=== PATIENT | male | born 1970 | race Caucasian/White ===

== ENCOUNTER → 2021-06-12 | Outpatient (CLI) | payer OTHER ==
[~2021-06-12] VITALS: Ht 193 cm; Wt 120.2 kg
[~2021-06-12] MED LIST: OMEPRAZOLE40 MG PO
[2021-06-12 13:54] VITALS: BP 129/88
--- NOTE | 2021-06-12 14:19 | NUR ---
[facility] Assessment: 1. History of Osteoarthritis: LOW BACK History of Rheumatoid Arthritis: Not Applicable 2. Height: 6 ft. 4 in. 193.0 cm. Weight: 265.0 lb. oz. 120.204 kg. Patient's BMI: 32.3 3. Vital Signs: BP: 129/88 Pulse: 81 Resp: 16 Temp: 02 Sat: 98 ECG Mon: 4. Pain Intensity: 4 5. Fall Risk: Dizziness: N Needs help standing or walking: N Fallen in the last 3 months: N Fall risk comments: 6. Patient on Blood Thinner: None 7. History of Hypertension: N 8. Opioid Therapy greater than 6 weeks: N Opiate Contract Signed: 9. Risk Assessment Tool Provided: 0-low 10. Functional Assessment Tool: 50/70 11. Recreational Drug Use: Never Drug Type: Tobacco Use: Current Some Day Smoker Tobacco Type: Cigars Amount or Packs/day: 2 per week How Many Years: Alcohol Use: Yes Frequency: Weekly Quant: 3
== END ==
LOC: PAIN 10:47
PROVIDERS: ATTEND Anesthesiology Pain Medicine
DX: M54.59 Other low back pain (principal); M54.30 Sciatica, unspecified side; R20.0 Anesthesia of skin; K21.9 Gastro-esophageal reflux disease without esophagitis; Z90.49 Acquired absence of other specified parts of digestive tract